=== PATIENT | female | born 2000 | race Caucasian/White ===

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

== ENCOUNTER → 2020-07-13 | Outpatient (CLI) | payer BC ==
--- NOTE | 2020-07-13 17:15 | NM ---
EXAMINATION TYPE: NM hepatobiliary w EF DATE OF EXAM: 07/13/2020 COMPARISON: NONE HISTORY: R10.13 R10.84 R11.10. Decreased appetite, abdominal pain, nausea, vomiting, diarrhea, heartb urn. TECHNIQUE: After the intravenous administration of 4.58 mCi Tc 99m Mebrofenin hepatobiliary scintigra phy is performed. Immediate images post injection. FINDINGS: There is satisfactory initial accumulation of tracer by the liver. The gallbladder is visualized wit hin 10 minutes. The small bowel activity is noted within 40 minutes. At one hour 8 ounces of oral e nsure plus is given to mimic CCK and gallbladder ejection fraction is calculated at 47 %, in the norm al range. Therefore there is no scintigraphic evidence of cystic or common bile duct obstruction to suggest acute cholecystitis or gallbladder dyskinesia. IMPRESSION: Normal exam. No evidence of acute or chronic cholecystitis. No evidence of biliary dyskin esia.
== END | disposition home or self-care (01) ==
LOC: RADNMMAIN 15:03
PROVIDERS: ATTEND Family Medicine
DX: R10.13 Epigastric pain (principal); R10.84 Generalized abdominal pain; R11.10 Vomiting, unspecified
CPT/HCPCS: 78226; A9537

== ENCOUNTER 2020-07-22 09:47 | Day surgery (SDC) | payer BC ==
[2020-07-20 11:52] VITALS: BMI 41.1
[~2020-07-22 09:47] MED LIST: LACTATED RINGERS 1,000 ML IV SCH
[2020-07-22 10:15] VITALS: TEMP 97.9
[2020-07-22] MEDS ORDERED: PROPOFOL 10 MG/ML 20 ML VIAL IV ONE (10:32)
[2020-07-22] MEDS ORDERED: LIDOCAINE 1% INJ 10MG/ML (20 ML MDV) ONE (10:32)
--- NOTE | 2020-07-22 10:36 | P.GSHP ---
History of Present Illness H&P Date: 07/22/20 Chief Complaint: Epigastric pain This a 20-year-old female been safe for EGD. She's had issues of epigastric pain. Past Medical History Past Medical History: Asthma Additional Past Medical History / Comment(s): VOMITING History of Any Multi-Drug Resistant Organisms: None Reported Past Surgical History: No Surgical Hx Reported Additional Past Surgical History / Comment(s): WISDOM TEETH REMOVED Past Anesthesia/Blood Transfusion Reactions: Family History of Problems w/ Anesthesia, Motion Sickness Additional Past Anesthesia/Blood Transfusion Reaction / Comment(s): MOM- TROUBLE BREATHING WITH TWILIGHT SURGERY GIVEN WITH ANKLE SURGERY Smoking Status: Never smoker - Past Family History Mother Family Medical History: No Reported History Medications and Allergies Home Medications Medication Instructions Recorded Confirmed Type Albuterol Inhaler (Mhu) [Ventolin 1 - 2 puff INHALATION RT-Q6H PRN 11/18/18 07/22/20 History Hfa Inhaler] Fluticasone Furoate [Arnuity 1 puff INHALATION RT-DAILY 11/18/18 07/22/20 History Ellipta] Fluticasone Nasal [place] [Flonase 2 spray EA NOSTRIL DAILY 11/18/18 07/20/20 History Nasal [place]] Montelukast [Singulair] 10 mg PO DAILY 11/18/18 07/20/20 History Oxymetazoline 0.05% Nasl [place] 2 spray EA NOSTRIL BID 3 Days #1 11/18/18 07/22/20 Rx [Afrin 0.05% Nasal [place]] bottle Riboflavin (Vitamin B2) [Vitamin 50 mg PO DAILY 11/18/18 07/20/20 History B-2] Sertraline [Zoloft] 25 mg PO DAILY 11/18/18 07/22/20 History Anti Reflux Med (Unknown) 1 tab PO DAILY 07/20/20 History Ibuprofen 400 mg PO Q6H 07/20/20 07/22/20 History Pantoprazole Sodium [Protonix] 40 mg PO DAILY 07/22/20 07/22/20 History Allergies Allergy/AdvReac Type Severity Reaction Status Date / Time No Known Allergies Allergy Verified 07/22/20 10:02 Surgical - Exam Vital Signs Temp Pulse Resp BP Pulse Ox 97.9 F 102 H 17 120/67 98 07/22/20 10:13 07/22/20 10:13 07/22/20 10:13 07/22/20 10:13 07/22/20 10:13 - General well developed, well nourished, no distress - Eyes PERRL - ENT normal pinna - Neck no masses - Respiratory normal expansion - Cardiovascular Rhythm: regular - Abdomen Abdomen: soft, non tender Assessment and Plan Assessment: Epigastric pain. We'll perform EGD.
--- NOTE | 2020-07-22 10:42 | P.OP ---
Date of Procedure: 07/22/20 Preoperative Diagnosis: Epigastric pain Postoperative Diagnosis: Mild antral gastritis Procedure(s) Performed: EGD Anesthesia: MAC Surgeon: Mukund Mojica Pathology: other (Antrum) Condition: stable Disposition: PACU Description of Procedure: The patient's placed on the endoscopy table in the lateral position. She received IV sedation. The gastroscope placed oropharynx passed in the esophagus into the stomach. Scope then placed through the pylorus. The first and second portion of the duodenum appeared normal. Scope was then brought back the antrum and this appeared mildly inflamed. A biopsies performed. The scope was retroflexed the remainder of the stomach appeared normal. The GE junction was at 40 cm. The distal esophagus appeared normal. The proximal esophagus appeared normal. Scope was withdrawn for patient.
[2020-07-22 11:02] VITALS: BP 107/72; PULSE 87; RESP 16
== END 2020-07-22 11:32 | disposition home or self-care (01) ==
LOC: ORWHC2ENDO 09:47
PROVIDERS: ATTEND Surgery
DX: K29.50 Unspecified chronic gastritis without bleeding (principal); J45.909 Unspecified asthma, uncomplicated; Z79.51 Long term (current) use of inhaled steroids; Z79.899 Other long term (current) drug therapy; Z98.818 Other dental procedure status
CPT/HCPCS: 81025; 88305; 43239; J2001; J2704

== ENCOUNTER → 2022-05-02 | Outpatient (CLI) | payer BC ==
--- NOTE | 2022-05-02 12:54 | MR ---
EXAMINATION TYPE: MR knee LT wo con DATE OF EXAM: 05/02/2022 COMPARISON: X-ray 04/14/2022 HISTORY: Pain TECHNIQUE: Multiplanar, multisequence imaging of the left knee is performed without IV contrast. FINDINGS: MEDIAL MENISCUS: There is intrasubstance signal posterior horn of the medial meniscus which may exten d to the articular surface. LATERAL MENISCUS: Anterior and posterior horns are intact without tear. CRUCIATE LIGAMENTS: The anterior and posterior cruciate ligaments are intact and unremarkable. COLLATERAL LIGAMENTS: The medial collateral ligament and lateral collateral ligament complex are inta ct and unremarkable. EXTENSOR MECHANISM: Visualized quadriceps and patellar tendons are intact. EFFUSION: No significant suprapatellar joint effusion. POPLITEAL CYST: No popliteal/borjas cyst. BONE MARROW SIGNAL: No focal abnormal marrow signal is appreciated. OTHER: The cartilage is maintained within the tricompartment joint space. No erosive changes. There is a mild increased signal involving the infrapatellar fat pad within Hoffa's fat pad region. Lobula neyda septated cystic lesion posterior to the PCL measuring 1 x 1.7 x 2.6 cm most likely in the basis o f a ganglion cyst. IMPRESSION: 1. Intrasubstance signal posterior horn of the medial meniscus compatible with myxoid degeneration. S ubtle tear in the differential diagnosis. 2. Lobulated septated cystic lesion posterior to the PCL measuring 1 x 1.7 x 2.6 cm most likely on th e basis of a ganglion cyst. 3. Signal noted in the infrapatellar fat pad can be associated with the fat impingement syndrome lilia elate clinically.
== END | disposition home or self-care (01) ==
LOC: RADMRIMAIN 11:00
PROVIDERS: ATTEND Orthopaedic Surgery
DX: M23.322 Other meniscus derangements, posterior horn of medial meniscus, left knee (principal); M67.462 Ganglion, left knee

== ENCOUNTER 2022-06-21 08:02 | Day surgery (SDC) | payer BC ==
[2022-06-16 15:52] VITALS: BMI 43.0
--- NOTE | 2022-06-21 06:32 | HP ---
HISTORY AND PHYSICAL DATE OF SURGERY: The surgery is scheduled for 06/21/2022. HISTORY OF PRESENT ILLNESS: Santa Montes is a 21-year-old patient, seen with progressive left knee pain. We discussed options for treatment. She elected to proceed with left knee arthroscopy. Consent was obtained. PAST MEDICAL HISTORY: Asthma. PAST SURGICAL HISTORY: Noncontributory. DAILY MEDICATIONS: None. ALLERGIES: None reported. SOCIAL HISTORY: She denies tobacco use. PHYSICAL EVALUATION OF THE LEFT KNEE: Range of motion is +2 to 130. Mild effusion. Tenderness to medial joint line. Positive medial Mike's. Ligaments stable. Hip rotation without pain. Distal neurovascular exam intact. RADIOGRAPHS: Left knee radiographs revealed no osseous abnormality. MRI of the left knee revealed abnormal signal along the medial meniscus. IMPRESSION: Internal derangement of left knee with medial meniscal tear. PLAN: Left knee arthroscopy with partial medial meniscectomy and debridement. MMODL / IJN: [id number] /
[~2022-06-21 08:02] MED LIST changes: +DEXAMETHASONE SOD PHOSPHATE 4 MG/ML 1 ML VIAL IV ONE; +ONDANSETRON 4 MG/2 ML VIAL IVP ONE
[2022-06-21] MEDS ORDERED: LIDOCAINE 1% (10MG/ML) FOR IV START INTRADERMA ONE (08:45)
[2022-06-21] MEDS ORDERED: SCOPOLAMINE 1 MG/72 HR PATCH TRANSDERM ONE (09:01)
[2022-06-21] MEDS ORDERED: MIDAZOLAM 2 MG/2 ML VIAL IV ONE (09:11)
[2022-06-21] MEDS ORDERED: MIDAZOLAM 2 MG/2 ML VIAL ONE (09:18)
[2022-06-21] MEDS ORDERED: LIDOCAINE 2% INJ 20 MG/ML (2 ML VIAL) ONE (09:18)
[2022-06-21] MEDS ORDERED: SUCCINYLCHOLINE CHLORIDE 200 MG/10 ML VIAL IV ONE (09:18)
[2022-06-21] MEDS ORDERED: fentaNYL (PF) 50 MCG/ML 2 ML AMP ONE (09:18)
[2022-06-21] MEDS ORDERED: PROPOFOL 10 MG/ML 20 ML VIAL IV ONE (09:18)
[2022-06-21] MEDS ORDERED: ALBUTEROL HFA INHALER INHALATION ONE (09:18)
[2022-06-21 09:19] VITALS: RESP 16
[2022-06-21] MEDS ORDERED: BUPIVACAINE (PF) 0.25% 30 ML VIAL SQ ONE ×2 (09:21→09:58)
[2022-06-21 09:23] LABS: Basophils % (A) 0 %; Eosinophils % (A) 0 %; HCT 41.1 % (34.0-46.0); HGB 13.5 gm/dL (11.4-16.0); Lymphocytes # (A) 1.5 k/uL (1.0-4.8); Lymphocytes % (A) 19 %; MCH 30.4 pg (25.0-35.0); MCHC 32.8 g/dL (31.0-37.0); MCV 92.5 fL (80.0-100.0); Monocytes # (A) 0.3 k/uL (0-1.0); Monocytes % (A) 4 %; Neutrophils # (A) 5.8 k/uL (1.3-7.7); Neutrophils % (A) 74 %; Platelet Count 238 k/uL (150-450); RBC 4.44 m/uL (3.80-5.40); RDW 12.8 % (11.5-15.5); WBC 7.8 k/uL (3.8-10.6)
[2022-06-21 09:31] LABS: Potassium 4.5 mmol/L (3.5-5.1)
--- NOTE | 2022-06-21 10:12 | P.OP ---
Date of Procedure: 06/21/22 Preoperative Diagnosis: Internal derangement left knee Postoperative Diagnosis: 1. Tear medial meniscus left knee 2. Reactive synovitis medial and suprapatellar compartments left knee Procedure(s) Performed: 1. Arthroscopic partial medial meniscectomy left knee 2. Arthroscopic partial synovectomy medial and suprapatellar compartments left knee Anesthesia: MARIKA local Surgeon: Rishi Pelayo Estimated Blood Loss (ml): 7 Pathology: none sent Condition: stable Disposition: PACU Indications for Procedure: 21-year-old patient seen with progressive left knee pain. After treatment options were discussed, she elected to proceed with arthroscopy. Operative Findings: See description of procedure Description of Procedure: Patient was taken to the operative suite. Patient underwent a general anesthetic by the department of anesthesia. Patient was given preoperative antibiotics. The left lower extremity was placed in a well-padded arthroscopic leg perez. The left leg was prepped and draped in the normal sterile orthopedic fashion. A lateral parapatellar and suprapatellar incision was made. Trochars were inserted. Arthroscopy was initiated. Suprapatellar pouch revealed diffuse reactive synovitis. The patellofemoral joint appeared to articulate congruently. There was no significant chondromalacia present. The scope was guided into the medial gutter. No loose bodies or plica were identified. The scope was then guided into the medial compartment. A medial parapatellar incision was made. Trocar inserted followed by probe. There was a radial tear posterior horn medial meniscus. There was thick reactive synovitis anteriorly. There was no significant chondromalacia present. I performed a partial medial meniscectomy getting down to stable meniscal tissue. I performed a partial synovectomy decompressing the reactive synovitis. The residual meniscus was stable. There was good decompression of synovitis. Scope and probe were then guided into the intercondylar notch. Cruciates were identified, probed and found to be stable. The scope and probe were then guided into lateral compartment. Lateral meniscus was probed and was found to be stable. There was no significant chondromalacia present. There was no significant reactive synovitis present. The scope was in guided back into the suprapatellar compartment. I introduced a motorized shaver into the super patellar compartment. I performed a partial synovectomy. Shaver was removed. There was good decompression of synovitis. I took one more look around the entire knee, no residual debris. Instruments were now removed from the joint. The joint was infiltrated with .25% Marcaine. Steri-Strips were applied to the portal sites. Sterile dressings were applied. The patient was placed into a CHAIM hose. No tourniquet was utilized. The patient was awakened, transferred to a bed and taken to recovery stable satisfactory condition.
[2022-06-21 10:19] VITALS: TEMP 99.2
[2022-06-21] MEDS: HYDROmorphone 0.5 MG/0.5 ML SYRINGE IVP PRN ×3 (10:25→10:58)
[2022-06-21 11:32] VITALS: BP 108/76; PULSE 89
[2022-06-21] MEDS ORDERED: HYDROcodone/APAP 7.5-325MG 1 EACH TAB ONE (12:03)
[2022-06-21] MEDS ORDERED: HYDROcodone/APAP 7.5-325MG 1 EACH TAB PO ONE (12:05)
== END 2022-06-21 13:23 | disposition home or self-care (01) ==
LOC: OR 08:02
PROVIDERS: ATTEND Orthopaedic Surgery
DX: M23.204 Derangement of unspecified medial meniscus due to old tear or injury, left knee (principal); M65.862 Other synovitis and tenosynovitis, left lower leg; M23.92 Unspecified internal derangement of left knee; J45.909 Unspecified asthma, uncomplicated; E66.01 Morbid (severe) obesity due to excess calories; Z68.41 Body mass index [BMI] 40.0-44.9, adult
CPT/HCPCS: 81025; 80051; 85025; 29881; J2250; J0330; J1100; J0690; J2405; J3010; J2704; J1170; J2001

== ENCOUNTER → 2023-06-12 | Outpatient (CLI) | payer BC ==
[2023-06-12 21:55] LABS: Basophils # (A) 0.03 X 10*3/uL (0.00-0.10); Basophils % (A) 0.3 %; Eosinophils # (A) 0.04 X 10*3/uL (0.04-0.35); Eosinophils % (A) 0.5 %; HCT 41.4 % (37.2-46.3); HGB 13.8 d/dL (12.0-15.0); Lymphocytes # (A) 3.09 X 10*3/uL (0.90-5.00); Lymphocytes % (A) 34.9 %; MCH 31.2 pg (27.0-32.0); MCHC 33.3 d/dL (32.0-37.0); MCV 93.7 FL (80.0-97.0); Mean Platelet Volume 11.9 FL (9.5-12.2); Monocytes # (A) 0.52 X 10*3/uL (0.20-1.00); Monocytes % (A) 5.9 %; NRBC Per 100 WBC 0 X 10*3/uL (0.00-0.01); Neutrophils % (A) 57.5 %; Platelet Count 242 X 10*3/uL (140-440); RBC 4.42 X 10*6/uL (4.10-5.20); RDW 12.9 % (11.5-14.5); WBC 8.86 X 10*3/uL (4.50-10.00)
[2023-06-12 22:14] LABS: ALT 70 U/L (8-44); AST 31 U/L (13-35); Albumin 4.5 d/dL (3.8-4.9); Albumin/Globulin Ratio 1.88 Ratio (1.60-3.17); Alkaline Phosphatase 77 U/L (41-126); BUN/Creat Ratio 12.71 Ratio (12.00-20.00); Blood Urea Nitrogen 8.9 mg/dL (9.0-27.0); C Reactive Protein <0.30 mg/dL (0.00-0.80); Calcium 10.2 mg/dL (8.7-10.3); Carbon Dioxide 22.2 mmol/L (21.6-31.8); Chloride 107 mmol/L (96-109); Globulin 2.4 d/dL (1.6-3.3); Glucose 91 mg/dL (70-110); Sodium 142 mmol/L (135-145); Total Bilirubin 0.4 mg/dL (0.3-1.2); Total Protein 6.9 d/dL (6.2-8.2)
[2023-06-12 22:50] LABS: Erythrocyte Sedimentation Rate 15 mm/Hr (0-20)
[2023-06-13 01:48] LABS: Gliadin AB IgA, Deaminated Negative (Negative); Gliadin AB IgA, Unit 0.9 U/mL; Gliadin AB IgG, Deaminated Negative (Negative); Gliadin AB IgG, Unit 13.3 U/mL
== END | disposition home or self-care (01) ==
LOC: LABWHC1 14:32
PROVIDERS: ATTEND Nurse Practitioner Family
DX: K52.9 Noninfective gastroenteritis and colitis, unspecified (principal)
CPT/HCPCS: 36415; 80053; 83516; 85025; 85652; 86140